=== PATIENT | female | born 1965 | race Caucasian/White ===

== ENCOUNTER 2022-11-03 09:51 | Day surgery (SDC) | payer MEDICAID, SELFPAY ==
[2022-11-03 10:22] VITALS: BP 162/85; PULSE 67; RESP 16; TEMP 36.1; O2SAT 98
--- NOTE | 2022-11-03 10:56 | W.ANESPRE ---
General Info Date of Service Date Performed: 11/03/22 Height: 5 ft 5 in Weight: 99.2 kg Body Mass Index (BMI): 36.3 Surgical Procedure: Operation Date: 11/03/22 12:05 Proposed Procedure Side Surgeon p Gastroscopy w/Biopsy Samuel Arce MD Meds Allergies and Home Medications Allergies Allergy/AdvReac Type Severity Reaction Status Date / Time Penicillins Allergy as child Unverified 11/03/22 10:12 prochlorperazine AdvReac panic Unverified 11/03/22 10:12 [From Compazine] attack Home Medication Medication Instructions Recorded atenolol 50 mg tablet 100 mg PO HS 07/15/15 methylphenidate HCl 20 mg tablet 10 mg PO DAILY 07/15/15 (Ritalin) omeprazole 40 mg capsule,delayed 40 mg PO DAILY 07/15/15 release pregabalin 300 mg capsule (Lyrica) 300 mg PO BID 07/15/15 hydrochlorothiazide 25 mg tablet 25 mg PO DAILY 10/21/22 loratadine 10 mg tablet (Allergy 10 mg PO DAILY 10/21/22 Relief (loratadine)) Lactobacillus acidophilus 10 mg PO DAILY 10/26/22 atorvastatin 20 mg tablet 20 mg PO DAILY 10/26/22 cyanocobalamin (vitamin B-12) 1,000 mcg PO DAILY 10/26/22 1,000 mcg capsule cyproheptadine 4 mg tablet 8 mg PO QHS 10/26/22 diphenoxylate-atropine 2.5 2 tab PO DAILY 10/26/22 mg-0.025 mg tablet ferrous sulfate 325 mg (65 mg 325 mg PO DAILY 10/26/22 iron) tablet (FeroSul) fluticasone propionate 50 1 spray intranasal DAILY 10/26/22 mcg/actuation nasal spray,suspension (Allergy Relief (fluticasone)) folic acid 1 mg tablet 1 mg PO DAILY 10/26/22 lisinopril 10 mg tablet 10 mg PO DAILY 10/26/22 lorazepam 1 mg tablet 1 mg PO DAILY PRN 10/26/22 metformin 500 mg tablet 1,000 mg PO . in am 10/26/22 metformin 500 mg tablet 1,500 mg PO HS 10/26/22 methylphenidate HCl 54 mg 54 mg PO DAILY 10/26/22 tablet,extended release 24 hr (Concerta) montelukast 10 mg tablet 10 mg PO DAILY 10/26/22 pioglitazone 15 mg tablet 15 mg PO DAILY 10/26/22 quetiapine 50 mg tablet 50 mg PO TID 10/26/22 ropinirole 1 mg tablet 1 mg PO QHS 10/26/22 venlafaxine 37.5 mg 37.5 mg PO DAILY 10/26/22 capsule,extended release 24 hr vitamin B complex (B 1 tab PO DAILY 10/26/22 Complex-Vitamin B12 tablet) zolpidem 10 mg tablet 10 mg PO QHS PRN 10/26/22 albuterol 90 mcg/actuation aerosol 90 mcg inhalation Q4H 11/03/22 inhaler Current Visit Medications: Current Medications Generic Name Dose Route Start Last Admin Trade Name Freq PRN Reason Stop Dose Admin Ringer's Solution 1,000 mls @ 80 mls/hr 11/03/22 06:00 IV 11/03/22 23:59 INFUSION MARTÍN IV Miscellaneous Supplies 1 each 11/03/22 06:00 Iv Access IV 11/03/22 23:59 DIRECTED MARTÍN Sodium Chloride 0 ml 11/03/22 06:00 Normal Saline Flush 10 Ml Syr IV 11/03/22 23:59 PRN PRN Sodium Chloride 0 ml 11/03/22 06:00 Normal Saline 10 Ml Vial IJ 11/03/22 23:59 DIRECTED PRN Sterile Water 0 ml 11/03/22 06:00 Water,Injection,Sterile 10 Ml Vial IJ 11/03/22 23:59 DIRECTED PRN PFSH Active Problems Active Problems: Problem Status Onset Code Diarrhea R19.7 Bloating R14.0 Gastroenteritis K52.9 Smoker F17.200 GERD (gastroesophageal reflux disease) K21.9 Epigastric pain R10.13 HTN (hypertension) I10 Type II diabetes mellitus E11.9 Asthma J45.909 COPD (chronic obstructive pulmonary disease) J44.9 CHANDNI (generalized anxiety disorder) F41.1 Environmental allergies Z91.09 ADHD, adult residual type F90.8 Surgical History Surgical History H/O exploratory laparotomy History of cholecystectomy History of liver biopsy Hx of appendectomy Tobacco Smoking/Tobacco Use Status: Current every day Tobacco Type: cigarettes Smoking cigarettes per day: 6 Alcohol Alcohol Intake: never Substance Use Substance use: Never Substance use type: does not use Vital Signs and Lab Results Vital Signs Most Recent Vital Signs in EMR: Most Recent Vital Signs Temp Pulse Resp BP Pulse Ox 36.1 C L 67 16 162/85 H 98 11/03/22 10:22 11/03/22 10:22 11/03/22 10:22 11/03/22 10:22 11/03/22 10:22 Point of Care Results Point of Care Results: Finger Stick Blood Glucose 163 11/03/22 10:30 Lab Results Blood Type / Crossmatch: No Data to Display Complete Blood Count: No Data to Display Complete Metabolic Panel: No Data to Display Liver Function Panel: No Data to Display Coagulation Panel: No Data to Display Cardiac Panel: No Data to Display Arterial Blood Gas: No Data to Display Venous Blood Gas: No Data to Display Pancreas Panel: No Data to Display Thyroid Panel: No Data to Display Infectious Disease: No Data to Display Blood Cultures: No Data to Display Toxicology Panel: No Data to Display Anesthesia Assessment and Plan Anesthesia History Personal History: PONV Family History: No Family History of Anesthesia Complications Exercise Tolerance Exercise Tolerance: Metabolic Equivalents>4 Pertinent Negatives Pertinent Negatives: No Symptoms of GERD (None today, took meds), No Major Cardiovascular Symptoms or Complaints, No Major Pulmonary Symptoms or Complaints and No History of CVA/TIA Cardiac & Pulmonary Exam Cardiac Exam: Normal S1/S2 Heart Sounds Pulmonary Exam: Clear Bilateral Breath Sounds Implantable Cardiac Device Does patient have a Pacemaker or an ICD?: No Airway Exam Known Difficult Airway: No Mallampati Class: 2 Mouth Opening: Normal (> 3cm) Thyromental Distance: Greater than 3 cm Neck Range of Motion: Full ROM Neck Circumference: Normal Teeth Condition: Normal Dentition ASA Classification ASA Score: ASA 2 Emergency Case?: No NPO Status NPO Status: NPO Clears >2 hours, Solids >8 hours Anesthesia Plan Resuscitation Status: Full Code Anesthesia Technique: General Anesthesia Airway Planned: Natural Airway Monitors Used: Standard Monitors
[2022-11-03] MEDS: Lactated Ringers 1,000 ML 80 ML IV (11:10)
[2022-11-03 11:13] VITALS: BMI 36.3
--- NOTE | 2022-11-03 11:23 | STOM_PTH ---
PATIENT: Alma Christopher LOC: [facility] U#:[id number] AGE/SX: 57/F ROOM: RE11/03/[address]: Samuel Arce : 1965 BED: DIS: 11/03/2022 SPEC #: [id number] RECD: 11/03/22 13:01 STATUS: [facility] #: [id number] ERIC: 11/03/22 11:[address]: Samuel Arce DEPT: Surgical Specimen RECD BY: Lizbeth Henry ENTERED: 11/03/22 13:03 SP TYPE: STOMACH OTHR DR: Tete Lucero Tissues: 1 - BIOPSY BOWEL 2 - STOMACH BIOPSY 3 - STOMACH BIOPSY 4 - ESOPHAGUS BIOPSY 5 - ESOPHAGUS BIOPSY Procedures: GROSS AND MICRO LEVEL 4 Comments: [id number]
--- NOTE | 2022-11-03 11:33 | ENDO_ITS ---
Date of service: 11/03/22 Time of Service: 11:44 Endoscopy Report PROCEDURE DESCRIPTION: Procedures performed: 1.? Esophagogastroduodenoscopy with cold forceps biopsies Preoperative diagnosis: Refractory GERD with esophagitis Postoperative diagnosis: Small(<1cm) type I sliding hiatal hernia Surgeon: Nakul Arce Anesthesia: Samina Indication for procedure: 57-year-old woman describes daily, episodic retrosternal chest discomfort that is relieved with omeprazole but sometimes omeprazole does not relieve it. Certain foods irritate the problem and provoke it. She has had her gallbladder removed. Findings: - D3, D2 and D1 -there is an area of minimal/mild irritation in the duodenum that could represent very mild duodenitis and this was biopsied with cold forceps technique. - Pylorus - patent.? No bile reflux was visualized during procedure and there was no bile sitting in the stomach. - Antrum - looks normal visually - biopsies taken to rule out incidental H. pylori - Stomach Body - normal appearance.? Biopsies taken to rule out incidental H. pylori - Fundus -? Normal.? No polyps. - Hiatus - Retroflexion showed a very small type I sliding hiatal hernia (<1 cm slide) - Esophagus - distal esophagus does not look inflamed at al despite small hernia.? No mucosal cracks. No stricture or evidence of Eugene's.? The mid and proximal esophagus were also normal. Cold forceps biopsies were taken at the distal esophagus and in the midesophagus because of the symptoms only. - Cords/hypopharynx - Normal OVERALL - nothing found/seen which would explain her symptoms. Her hernia is too small and would not be contributing. I doubt she is having reflux co nsidering how good her esophagus looked but we can wait and see what the biopsies show. Esophageal spasm and/or nutcracker esophagus could be playing a role and if biopsies are unremarkable, manometry would be the next step. Surveillance/follow-up recommendations: Pending biopsy results.??Surveillance unlikely to be necessary.?? I suspect pH/Chin as well as manometry is going to be indicated. Complications: None Blood loss: Minimal Specimens:? YES Procedure in detail: Written consent was obtained from the patient who was in agreement with the risks, benefits and indications of the procedure.? We went to the endoscopy suite and laid the patient in left lateral decubitus position.? Anesthesia was administered which was tolerated well.? A timeout was performed and when we are all in agreement we began the procedure. A well?lubricated endoscope was advanced without difficulty down the esophagus, into the stomach, through a patent pylorus and into the duodenum.? It was then slowly pulled back with findings noted above. The scope was then removed and the patient tolerated the procedure well and was then taken to the PACU in stable condition.
[2022-11-03 11:34] VITALS: BP 148/90; PULSE 74; RESP 18; TEMP 36.3; O2SAT 98
--- NOTE | 2022-11-03 11:46 | W.ANESPOSTOP ---
Postoperative Evaluation Date, Time and Location Date Performed: 11/03/22 Time Performed: 11:46 Patient Location: Day Surgery Unit Vital Signs Most Recent Imported Vital Signs: Most Recent Vital Signs Temp Pulse Resp BP Pulse Ox 36.3 C L 74 18 148/90 H 98 11/03/22 11:34 11/03/22 11:34 11/03/22 11:34 11/03/22 11:34 11/03/22 11:34 Pain Score Most Recent Pain Score: Most Recent Pain Score Pain Level 0 11/03/22 11:34 Assessment Mental Status: Awake (Alert & Oriented to Patient Baseline) Airway and Respiratory Function: Patent airway with normal (patient baseline) respiratory exam Cardiovascular Function: Hemodynamically Stable Hydration Status: Adequately Hydrated Nausea & Vomiting: No Nausea or Vomiting Pain: Pt. Denies Any Pain Peripheral Nerve Block: Patient did not receive a nerve block
[2022-11-03 12:06] VITALS: BP 139/77; PULSE 64; RESP 18; TEMP 36.3; O2SAT 96
== END 2022-11-03 12:30 | disposition home or self-care (01) ==
PROVIDERS: PCP Internal Medicine; Visit Provider Student in an Organized Health Care Education/Training Program
PROC: 0DJ68ZZ Inspection of Stomach, Via Natural or Artificial Opening Endoscopic (ICD-10-PCS; CPT 43235; principal; 2022-11-03 12:00)
DX: E11.9 Type 2 diabetes mellitus without complications; I10 Essential (primary) hypertension; F17.210 Nicotine dependence, cigarettes, uncomplicated; R07.89 Other chest pain; K31.89 Other diseases of stomach and duodenum; K44.9 Diaphragmatic hernia without obstruction or gangrene
CPT/HCPCS: 43239; 88305; J2405; J2704